=== PATIENT | male | born 1985 | race Caucasian/White ===

== ENCOUNTER 2023-04-13 12:21 | Emergency (ER) | payer MEDICAID ==
[~2023-04-13] VITALS: Ht 167.6 cm; Wt 86.0 kg
[2023-04-13 12:25] VITALS: BP 112/58; PULSE 100; RESP 16; TEMP 98.7; O2SAT 98
[2023-04-13] MEDS ORDERED: HYDROCODONE/ACETAMINOPHEN 5/325MG TABLET PO NR (14:00)
[2023-04-13] MEDS ORDERED: NAPR-681 PO (16:17)
== END 2023-04-13 17:45 | disposition home or self-care (01) ==
LOC: ER 12:21
DX: S00.83XA Contusion of other part of head, initial encounter (principal); M79.601 Pain in right arm; M54.2 Cervicalgia; Z59.00 Homelessness unspecified; Y04.0XXA Assault by unarmed brawl or fight, initial encounter; Y93.89 Activity, other specified; Y92.89 Other specified places as the place of occurrence of the external cause; Y99.8 Other external cause status
CPT/HCPCS: 70486; 71045; 73030; 73060; 99284

== ENCOUNTER 2023-04-13 18:01 | Emergency (ER) | payer MEDICAID ==
[~2023-04-13] VITALS: Ht 165.1 cm; Wt 68.0 kg
[~2023-04-13 18:01] MED LIST: NAPR-681 PO
[2023-04-13 18:05] VITALS: BP 123/86; RESP 20; TEMP 98.3; O2SAT 98
[2023-04-13 18:15] VITALS: PULSE 116
[2023-04-13] MEDS ORDERED: ACETAMINOPHEN 325MG TABLET PO ONE (22:45)
[2023-04-13] MEDS ORDERED: PROMETHAZINE/DEXTROMETHORPHAN 6.25-15MG/5ML BOTTLE 120ML PO PRN (23:30)
== END 2023-04-14 00:32 | disposition home or self-care (01) ==
LOC: ER 18:01
DX: R07.89 Other chest pain (principal); F41.9 Anxiety disorder, unspecified; F32.9 Major depressive disorder, single episode, unspecified; Y08.89XA Assault by other specified means, initial encounter; Y93.89 Activity, other specified; Y92.89 Other specified places as the place of occurrence of the external cause; Y99.8 Other external cause status
CPT/HCPCS: 71045; 93005; 99283

== ENCOUNTER 2023-04-14 01:53 | Emergency (ER) | payer MEDICAID ==
[~2023-04-14] VITALS: Ht 165.1 cm; Wt 86.5 kg
[2023-04-14 02:07] VITALS: BP 121/89; PULSE 84; RESP 14; TEMP 98; O2SAT 98
== END 2023-04-14 02:30 | disposition home or self-care (01) ==
LOC: ER 01:53
DX: Z00.00 Encounter for general adult medical examination without abnormal findings (principal); Z98.890 Other specified postprocedural states; Z76.5 Malingerer [conscious simulation]
CPT/HCPCS: 99281

== ENCOUNTER 2023-09-16 03:15 | Emergency (ER) | payer MEDICAID ==
[~2023-09-16] VITALS: Ht 167.6 cm; Wt 77.0 kg
[2023-09-16 03:30] VITALS: O2SAT 100
[2023-09-16 06:17] LABS: BASOPHILS % 0.9 % (0.0-2.0); EOSINOPHILS % 2.6 % (0.0-5.0); HEMATOCRIT. 44.9 % (42.0-52.0); HEMOGLOBIN. 15.2 g/dL (14.0-18.0); LYMPHOCYTES % 27.2 % (20.0-50.0); MEAN CORPUSCULAR HEMOGLOBIN 29.4 pg (28.0-32.0); MEAN CORPUSCULAR HGB CONC 33.9 g/dL (31.0-37.0); MEAN CORPUSCULAR VOLUME 86.8 fL (80.0-94.0); MEAN PLATELET VOLUME 7.9 fl (7.4-10.4); MONOCYTES % 9.7 % (2.0-8.0); NEUTROPHILS % 59.6 % (40.0-76.0); PLATELET 290 x1000/uL (130-400); RED BLOOD CELL COUNT 5.18 mill/uL (4.7-6.1); RED CELL DISTRIBUTION WIDTH 16.3 % (11.6-14.6); WHITE BLOOD COUNT 8.6 x1000/uL (4.5-11.0)
[2023-09-16 06:18] LABS: CLARITY URINE CLEAR (CLEAR); COLOR URINE YELLOW (YELLOW); GLUCOSE URINE NEGATIVE (NEGATIVE); KETONES URINE TRACE (NEGATIVE); LEUKOCYTE ESTERASE URINE NEGATIVE (NEGATIVE); NITRITE URINE NEGATIVE (NEGATIVE); OCCULT BLOOD URINE NEGATIVE (NEGATIVE); PROTEIN URINE NEGATIVE (NEGATIVE); SPECIFIC GRAVITY URINE 1.021 (1.005-1.030); UROBILINOGEN URINE 0.2 E.U./dL (0.2-1.0)
[2023-09-16 06:25] LABS: *AMPHETAMINES SCREEN URINE NEGATIVE (NEGATIVE); *BARBITURATES SCREEN URINE NEGATIVE (NEGATIVE); *BENZODIAZEPINES SCREEN URINE NEGATIVE (NEGATIVE); *COCAINE SCREEN URINE NEGATIVE (NEGATIVE); CANNABINOID URINE SCREEN PRESUMPTIVE POSITIVE (NEGATIVE); ECSTASY MDMA SCREEN URINE NEGATIVE (NEGATIVE); METHADONE URINE SCREEN Neg (NEGATIVE); OPIATES URINE SCREEN NEGATIVE (NEGATIVE); PHENCYCLIDINE URINE SCREEN NEGATIVE (NEGATIVE)
[2023-09-16 07:41] LABS: ACETAMINOPHEN < 2 ug/mL (10-30); ALANINE AMINOTRANSFERASE 11 IU/L (10-49); ALBUMIN 4.5 g/dL (3.2-4.8); ASPARTATE AMINOTRANSFERASE 18 IU/L (<34); BILIRUBIN TOTAL 0.3 mg/dL (0.1-1.0); CALCIUM 8.9 mg/dL (8.7-10.4); CARBON DIOXIDE 26 mEq/L (21-32); CHLORIDE 111 mEq/L (98-107); CREATININE 0.8 mg/dL (0.6-1.3); ETHANOL BLOOD 175 mg/dL (<10); GLUCOSE 87 mg/dL (70-105); POTASSIUM 4.5 mEq/L (3.5-5.1); PROTEIN TOTAL 7.5 g/dL (6.0-8.3); SODIUM 146 mEq/L (136-145)
[2023-09-16 08:01] LABS: UREA NITROGEN BLOOD < 5 mg/dL (9-23)
[2023-09-16 09:14] VITALS: BP 116/68; PULSE 82; RESP 18; TEMP 98.3
== END 2023-09-16 10:37 | disposition home or self-care (01) ==
LOC: ER 03:15
DX: R45.851 Suicidal ideations (principal); Z20.822 Contact with and (suspected) exposure to COVID-19
CPT/HCPCS: 80053; 80305; 81003; 80307; 80329; 80320; 85025; 36415; 99283; 87426; C9803; G0480

== ENCOUNTER 2024-06-24 13:23 | Emergency (ER) | payer MEDICAID, OTHER ==
[~2024-06-24] VITALS: Ht 167.6 cm; Wt 75.0 kg
[2024-06-24 13:27] VITALS: TEMP 97.4; O2SAT 99
[2024-06-24] MEDS ORDERED: NAPR375T5 MT (15:47)
[2024-06-24 16:59] VITALS: BP 130/77; PULSE 74; RESP 16; O2SAT 99
== END 2024-06-24 17:03 | disposition home or self-care (01) ==
LOC: ER 13:23
DX: M79.641 Pain in right hand (principal); F12.10 Cannabis abuse, uncomplicated
CPT/HCPCS: 73130; 99283